=== PATIENT | male | born 1945 | race Caucasian/White ===

== ENCOUNTER 2016-10-13 18:06 | Emergency (ER) | payer MEDICARE ==
--- NOTE | 2016-10-13 18:37 | ER NURSING DOCUMENTATION ---
Nurse's Notes [facility] Name:Jose F Culp Age:71 yrs Sex:Male :1945 Arrival Date:10/13/2016 Time:18:06 Bed2 Private MD: Diagnosis:Fractured Tooth, Closed Fracture Presentation: 10/13 18:10 Acuity: SEAN 4 tg 18:14 Presenting complaint: Patient states: was trying to pull a bad tooth with channel locks sc1 and broke tooth off at the roots. c/o pain. Transition of care: Home. Notified ED Physician of patient's arrival and CC Orlando Kessler notified. 18:14 Acuity: SEAN 4 sc1 18:14 Method Of Arrival: Private Vehicle sc1 Triage Assessment: 18:16 General: Appears uncomfortable, well developed, well nourished, well groomed, Behavior sc1 is cooperative, pleasant. Pain: Complains of pain in lower right first bicuspid. Historical: - Allergies: No known drug Allergies; - Home Meds: 1. None - PMHx: None; - PSHx: None; - Tetanus: unknown. - Ebola Screening: : Patient negative for fever greater than or equal to 101.5 degrees Fahrenheit, and additional compatible Ebola Virus Disease symptoms. Patient denies exposure to infectious person. - Immunization history: Flu Vaccine >1 year. - Social history: Smoking status: Patient states former smoker of tobacco. Patient/guardian denies using alcohol, street drugs, IV drugs, marijuana. Screenin:20 Infectious Disease Risk None. Abuse screen: Denies threats or abuse. Nutritional sc1 screening: No deficits noted. Vital Signs: 18:20 BP 160 / 115; Pulse 88; Resp 16; Temp 99.1(O); Pulse Ox 93% on R/A; Weight 86.18 kg arc (R); Height 5 ft. 4 in. (162.56 cm) (R); Pain 8/10; 18:20 Body Mass Index 32.61 (86.18 kg, 162.56 cm) arc ED Course: 18:09 Patient arrived in ED. ama 18:14 Jacquelyn Meraz, RN is Primary Nurse. sc1 18:15 Triage completed. sc1 18:19 Notified ED Physician of patient's arrival and chief complaint. Dr. Perry notified. Arm sc1 band placed on Bed in low position Call Light in Reach HOB Elevated. 18:20 Chaim Perry MD is Attending Physician. rikki 18:23 Private, Dentist is Referral Physician. rikki 18:28 Assist Provider Assist provider with nerve block (dental) of Mouth. Set up for sc1 procedure. Performed by Chaim Perry MD Patient tolerated well. Administered Medications: 18:28 Drug: Percocet Tablet (5 mg-325 mg) 6 tabs; Route: PO; md1 18:29 Follow up: Response: Pharmacy closed - take home med pack [facility] Outcome: 18:23 Discharge ordered by . rikki 18:35 Discharged to home ambulatory. [facility] 18:35 Condition: improved 18:35 Discharge instructions given to patient, Instructed on discharge instructions, follow up and referral plans. medication usage, Demonstrated understanding of instructions, medications, Prescriptions given X 1. 18:36 Patient left the ED. [facility] Signatures: Blanco Stanton RN RN Jacquelyn Meraz RN RN [facility] Chaim Perry MD MD jm Averdick, Andrew, Reg Reg ama Sammi Ambrocio, Reg Reg arc
--- NOTE | 2016-10-13 18:37 | ER PHYSICIAN DOCUMENTATION ---
Physician Documentation [facility] Name:Jose F Culp Age:71 yrs Sex:Male :1945 Arrival Date:10/13/2016 Time:18:06 Bed2 Private MD: Chaim Can Disposition: 10/13/16 18:23 Discharged to Home/Self Care. Impression: Fractured Tooth, Closed Fracture. - Condition is Good. - Discharge Instructions: Ache - DENTAL PAIN. - Prescriptions for Percocet 5- 325 mg Oral Tablet - take 1 tablet by ORAL route every 6 hours As needed; 20 tablet. - Medical Reconciliation form form. - Follow up: Private, Dentist; When: 2 - 3 days; Reason: Continuance of care. - Problem is new. - Symptoms have improved. HPI: 10/13 19:00 This 71 yrs old Male presents to ER via Private Vehicle with complaints of jm Dental Injury. 19:00 The patient presents with pain. The problem is located in the lower right first jm bicuspid. Onset: The symptom(s)/episode began/occurred just prior to arrival. Duration: The symptoms are continuous. Pt tired to rip out a tooth, but only pulled the cap off. He left the exposed roots and they are very painful. . Historical: - Allergies: No known drug Allergies; - Home Meds: 1. None - PMHx: None; - PSHx: None; - Tetanus: unknown. - Ebola Screening: : Patient negative for fever greater than or equal to 101.5 degrees Fahrenheit, and additional compatible Ebola Virus Disease symptoms. Patient denies exposure to infectious person. - Immunization history: Flu Vaccine >1 year. - Social history: Smoking status: Patient states former smoker of tobacco. Patient/guardian denies using alcohol, street drugs, IV drugs, marijuana. ROS: 19:00 Constitutional: Negative for fever. jm 19:00 ENT: Positive for dental pain. Exam: 19:00 ENT: Mouth: is normal, Dental exam: avulsion, fractured teeth are noted, specifically jm the lower right first bicuspid. 19:00 Cardiovascular: Rate: normal, Rhythm: regular. Vital Signs: 18:20 BP 160 / 115; Pulse 88; Resp 16; Temp 99.1(O); Pulse Ox 93% on R/A; Weight 86.18 kg arc (R); Height 5 ft. 4 in. (162.56 cm) (R); Pain 8/10; 18:20 Body Mass Index 32.61 (86.18 kg, 162.56 cm) arc Procedures: 19:00 Nerve block: (dental) of right inferior alveolar nerve, Medication: Lidocaine 2% with rikki epinephrine, Marcaine 0.5%, Amount: 10 mls were injected, Effect: the patient's symptoms are unchanged, Set up for procedure. Performed by Chaim Perry MD Patient tolerated well. MDM: 18:20 Patient medically screened. 19:00 Differential diagnosis: dental caries, fx tooth. Data reviewed: vital signs, nurses rikki notes, and as a result, I will discharge patient. Counseling: I had a detailed discussion with the patient and/or guardian regarding: the historical points, exam findings, and any diagnostic results supporting the discharge/admit diagnosis, the need for outpatient follow up, a dentist. Response to treatment: the patient's symptoms have markedly improved after treatment. Dispensed Medications: 18:28 Drug: Percocet Tablet (5 mg-325 mg) 6 tabs; Route: PO; sc1 18:29 Follow up: Response: Pharmacy closed - take home med pack sc1 Signatures: Jacquelyn Meraz RN RN sc1 Chaim Perry MD MD
[2016-10-13] MEDS ORDERED: oxyCODONE/APAP 5/325 MG PREPAC 1 TAB TABLET PO ONE (18:38)
== END 2016-10-13 18:37 | disposition home or self-care (01) ==
LOC: ER 18:06
DX: S02.5XXA Fracture of tooth (traumatic), initial encounter for closed fracture (principal); X58.XXXA Exposure to other specified factors, initial encounter
CPT/HCPCS: 64400; 64450; 99282; 99283